=== PATIENT | female | born 1975 | race Caucasian/White ===

== ENCOUNTER 2019-11-20 07:11 | Outpatient (CLI) | payer OTHER, SELFPAY ==
--- NOTE | 2019-11-20 07:19 | MM_ITS ---
WS: [id number] BILATERAL DIGITAL SCREENING MAMMOGRAPHY WITH CAD CLINICAL INFORMATION: SCREENING HISTORY: Screening mammogram. Pain and soreness left breast. Chronic lump left breast unchanged. COMPARISON: June 14, 2018 TECHNIQUE: Bilateral CC and MLO views. FINDINGS: The breasts are composed of heterogeneous fibroglandular density tissue, which can limit the detectio n of small underlying mass lesions. No suspicious mass, asymmetry, calcifications, or architectural d istortion. No evidence of malignancy. A few tiny punctate calcifications. MM/[place] [id number] IMPRESSION: BI-RADS: 2-Benign FOLLOW UP: 1 Year Follow-up Recommend return to annual screening mammography.
== END 2019-11-20 07:12 | disposition home or self-care (01) ==
LOC: RADSHAW 07:13
PROVIDERS: PCP Family Medicine; Visit Provider Family Medicine
DX: Z12.31 Encounter for screening mammogram for malignant neoplasm of breast (principal)
CPT/HCPCS: 77067

== ENCOUNTER 2021-06-04 08:37 | Outpatient (CLI) | payer OTHER, SELFPAY ==
--- NOTE | 2021-06-04 08:54 | MM_ITS ---
WS: [id number] SCREENING DIGITAL MAMMOGRAM WITH CAD HISTORY: SCREENING COMPARISON: 11/20/2019, 05/12/2016 and 06/14/2018 Bilateral CC and MLO views submitted. Computer aided detection analyzed. Breast composition: The breasts are heterogeneously dense, which may obscure small masses. No suspici ous masses, microcalcifications or architectural distortion. MM/[place] [id number] IMPRESSION: BI-RADS: 1-Negative FOLLOW UP: 1 Year Follow-up
== END 2021-06-04 08:38 | disposition home or self-care (01) ==
PROVIDERS: PCP Family Medicine; Visit Provider Family Medicine
DX: Z12.31 Encounter for screening mammogram for malignant neoplasm of breast (principal)
CPT/HCPCS: 77067

== ENCOUNTER 2022-08-17 10:38 | Outpatient (CLI) | payer OTHER, SELFPAY ==
--- NOTE | 2022-08-17 10:48 | MM_ITS ---
WS: [id number] BILATERAL SCREENING DIGITAL TOMOSYNTHESIS MAMMOGRAM WITH CAD HISTORY: 05/12/2016, 06/04/2021, 11/20/2019 COMPARISON: None available. Bilateral CC and MLO views with tomosynthesis and synthetic mammography submitted. Computer aided det ection analyzed. Breast composition: The breasts are heterogeneously dense, which may obscure small masses. Prominent asymmetry in the posterior central LEFT breast seen only on the CC projection at a middle depth. Sabas mmend additional views. MM/[place] [id number] IMPRESSION: BI-RADS: 0-Incomplete: Need additional imaging evaluation FOLLOW UP: Need Additional Imaging LEFT breast: Spot compression views (CC ). True ML. Ultrasound to follow if abn ormality persists.
== END 2022-08-17 10:39 | disposition home or self-care (01) ==
PROVIDERS: PCP Family Medicine; Visit Provider Family Medicine
DX: Z12.31 Encounter for screening mammogram for malignant neoplasm of breast (principal)
CPT/HCPCS: 77063; 77067

== ENCOUNTER 2022-09-03 13:37 | Outpatient (CLI) | payer OTHER, SELFPAY ==
--- NOTE | 2022-09-03 14:23 | MM_ITS ---
WS: [id number] ADDITIONAL VIEWS LEFT MAMMOGRAM with tomosynthesis. LEFT BREAST ULTRASOUND, limited HISTORY: ABNORMAL MAMMO COMPARISON: 11/29/2009, 08/17/2022 and 06/04/2021 LEFT MAMMOGRAM: Spot compression views and true ML with tomosynthesis and sympathetic mammography. The asymmetry persists seen only on the CC projection in the central posterior LEFT breast measuring approximately 8 mm. Ultrasound will be performed along the central mid breast. LEFT BREAST ULTRASOUND, limited 2-D and color Doppler imaging submitted. Along the 12:00 axis, 3 cm from the nipple is a complex cyst measuring 10 x 9 x 5 mm. This correspond s in size, location and shape to the mammographic abnormality. There is a small thin septation. Suspe ct this is a small complex cyst. No solid component or increased vascularity. MM/[place] [id number] IMPRESSION: BI-RADS: 3-Probably Benign FOLLOW UP: 6 Month Follow-up Recommendation: Limited LEFT breast ultrasound to reevaluate the complex cyst a t 12:00.
== END 2022-09-03 13:38 | disposition home or self-care (01) ==
PROVIDERS: PCP Family Medicine; Visit Provider Family Medicine
DX: R92.8 Other abnormal and inconclusive findings on diagnostic imaging of breast (principal); N60.02 Solitary cyst of left breast
CPT/HCPCS: 76642; 77061; G0279

== ENCOUNTER → 2023-01-25 13:45 | Outpatient (BNVA) | payer SELFPAY | PROVIDERS: PCP Family Medicine; Visit Provider Nurse Practitioner Women's Health | DX: Z12.4 Encounter for screening for malignant neoplasm of cervix (principal) | CPT/HCPCS: 87624 ==

== ENCOUNTER 2023-03-08 10:45 | Outpatient (CLI) | payer SELFPAY ==
--- NOTE | 2023-03-08 10:46 | US_ITS ---
WS: [id number] ULTRASOUND LEFT BREAST HISTORY: 6-month follow-up complex cyst at 12:00. COMPARISON: 09/03/2022 TECHNIQUE: 2-D and Doppler. Reidentified is a complex cyst at 12:00, 3 cm from the nipple. This is not a simple cyst but there is through transmission. There is a small amount of debris within the cyst. Measures 6 x 5 x 4 mm. Mass has slightly decreased in size since the prior study. IMPRESSION: US/US breast LT limited* [id number] BI-RADS: 3-Probably Benign FOLLOW-UP: 6 Month Follow-up Patient to return for annual screening mammogram in August 2023. Recommend addit ional ultrasound follow-up of the complex cyst at 12:00.
== END 2023-03-08 10:46 | disposition home or self-care (01) ==
LOC: RAD 10:45
PROVIDERS: PCP Family Medicine; Visit Provider Family Medicine
DX: R92.8 Other abnormal and inconclusive findings on diagnostic imaging of breast (principal); N60.02 Solitary cyst of left breast
CPT/HCPCS: 76642

== ENCOUNTER 2023-10-19 08:43 | Outpatient (CLI) | payer OTHER, SELFPAY ==
--- NOTE | 2023-10-19 08:52 | MM_ITS ---
WS: [id number] DIAGNOSTIC BILATERAL DIGITAL BREAST TOMOSYNTHESIS MAMMOGRAPHY WITH CAD LEFT breast ultrasound, limited HISTORY: ABNORMAL MAMMOGRAM COMPARISON: 09/03/2022, 08/17/2022, 06/04/2021 TECHNIQUE: Bilateral craniocaudad, mediolateral oblique, and mediolateral views are submitted with to mosynthesis and SM. LEFT CC and MLO spot compression. Computer aided detection utilized. Breast composition: The breasts are extremely dense, which lowers the sensitivity of mammography. Den se fibroglandular densities. There is an asymmetry along the LEFT outer inner quadrant. No distortion . No suspicious calcifications. LEFT breast ultrasound: Ultrasound directed to 12:00 as on the prior examinations and also from 3-6 o'clock. No interval velazquez ge in the cyst at 12:00, 2 cm from the nipple measuring 0.5 x 0.6 x 0.5 cm. There is an additional ov al cysts at 5:00 and 6:00. MM/[place] [id number] IMPRESSION: BI-RADS: 2-Benign FOLLOW UP: 1 Year Follow-up Benign cysts in the LEFT breast. Recommend return to annual screening mammograp hy.
== END 2023-10-19 08:44 | disposition home or self-care (01) ==
LOC: RAD 08:43
PROVIDERS: PCP Family Medicine; Visit Provider Family Medicine
DX: R92.8 Other abnormal and inconclusive findings on diagnostic imaging of breast (principal); R92.323 Mammographic fibroglandular density, bilateral breasts; N64.89 Other specified disorders of breast; N60.02 Solitary cyst of left breast
CPT/HCPCS: 76642; 77062; G0279

== ENCOUNTER 2024-12-18 09:09 | Outpatient (CLI) | payer OTHER, SELFPAY ==
--- NOTE | 2024-12-18 | MM_ITS ---
WS: [id number] BILATERAL SCREENING DIGITAL TOMOSYNTHESIS MAMMOGRAM WITH CAD HISTORY: ANNUAL SCREENING COMPARISON: 10/19/2023, 08/17/2022 Bilateral CC and MLO views with tomosynthesis and synthetic mammography submitted. Computer aided detection analyzed. Breast composition: The breasts are heterogeneously dense, which may obscure small masses. No suspicious masses, microcalcifications or architectural distortion. Benign calcifications in each breast. MM/MM scr tomosynthesis [id number] IMPRESSION: BI-RADS: 2 - Benign FOLLOW UP: 1 Year Follow-up
== END 2024-12-18 09:10 | disposition home or self-care (01) ==
LOC: RAD 09:10
PROVIDERS: PCP Family Medicine; Visit Provider Family Medicine
DX: Z12.31 Encounter for screening mammogram for malignant neoplasm of breast (principal); R92.333 Mammographic heterogeneous density, bilateral breasts; R92.1 Mammographic calcification found on diagnostic imaging of breast
CPT/HCPCS: 77063; 77067